=== PATIENT | female | born 1990 | race Caucasian/White ===

== ENCOUNTER → 2017-05-07 19:00 | Observation (INO) ==
--- NOTE | 2017-05-07 16:58 | OB/GYN History & Physical ---
Date of Encounter: 05/07/17 Time of Encounter: 16:53 Assessment and Plan (1) 37 weeks gestation of Current visit: Yes Status: Acute Admitted for observation (2) Rh negative status during in third trimester, antepartum Current visit: Yes Status: Acute Blood type and screen ordered. Rhogam to be given. (3) Marijuana use Current visit: Yes Status: Acute Urine drug screen (4) Limited care in third trimester Current visit: Yes Status: Acute Admitted for observation and labor evaluation 28 week labs drawn History of Present Illness Chief complaint: 37.6 weeks, contractions and back pain since 05/06/17 at 2315 HPI: Ms. Bustillos is a 26 year old female at 37w6d admitted with complaints of contractions and back pain since last night at 2315. States the pain comes and goes. Patient reports + movement that is slightly decreased today, denies fluid leakage and vaginal bleeding. Pt admits that she has smoked marijuana during the , the last time a "few months ago." Also reports an elective AB in May of 2016. Pt has not had any care since 23 weeks. States she tried to get care at [facility] but there was a delay in her records being transferred. Denies alcohol use patient reports daily tobacco use. Past Med Surg Social Fam HX - Past Medical History Source: patient Medical history: no medical history, hypertension (Was induced for HTN with last ) Psychiatric history: no psych history - Past Surgical History Surgical History: no surgical history, other (Elective AB at 12 weeks gestation in May 2016) - Social History Smoking Status: Current every day smoker Packs per day: 0.25 pack Smokeless Tobacco Status: No Alcohol use: none Drug use: marijuana (Last use a "few months ago") Current living situation: Home - Independent Recent Out of Country Travel Within the Last 8 Weeks: No Exposure or Possible Exposure to Illness During Travel: No - Family History Mother Adopted: [place]: Susana Age: 44 Living Status: Still Living Hx Family Cardiac Disorders: No Hx Family Respiratory Disorders: No Hx Family Cancer: No Hx Family GI Disorders: No Hx Family Genitourinary Disorders: No Hx Family Endocrine Disorder: No Hx Family Musculoskeletal Disorders: No Hx Family Neuromuscular Disorders: No Hx Family Neurologic Disorders: No Hx Family HEENT Disorders: No Hx Family Autoimmune Disorders: No Hx Family Reproductive Disorders: No Hx Family Psychosocial Disorders: No Hx Family Medical Disorders: No Obstetrical History - Pregnancies : 6 Para: 4 Term: 4 : 0 Ab's: 1 Livin - History/Complications History/Complications: Pt reports a shoulder dystocia with 1st delivery. 4th delivery patient was induced for HTN. Medications and Allergies Multi Tablet 05/07/17 [History] 3 Allergy/AdvReac Type Severity Reaction Status Date / Time Amoxicillin AdvReac Nausea Verified 05/07/17 16:22 Review of System OB All systems PM: reviewed and no additional remarkable complaints except as stated Exam - Constitutional Constitutional: well developed, well nourished, no acute distress, average body habitus - Neck Neck exam: full ROM - Lungs Respiratory exam: CTAB - Cardiovascular Cardiovascular exam: RRR, +S1, +S2 - Breasts Breast: bilateral: normal - Abdomen Abdomen: Present: bowel sounds normal, gravid, non tender - Extremities Extremities exam: full ROM, normal capillary refill, normal inspection - Cervix Dilation: 1 (per RN) - Uterus Uterus exam: Present: normal size - Comments Comments: FHR 125 bpm moderate variability +15x15 accels no decels noted. Occasional contraction noted. Results All other labs normal. - VTE Reasons for not Prescribing Prophylaxis: Treatment not Indicated - Low risk for VTE
[2017-05-07 17:26] LABS: Hemoglobin A1C 4.9 %
[2017-05-07 17:59] LABS: Basophils % 0.3 %; Eosinophils # 0.1 K/mcL (0.0-0.6); Eosinophils % 1.1 %; Hematocrit 30.2 % (35.3-44.9); Hemoglobin 10.5 g/dL (11.5-15.4); Immature Granulocytes % 0.4 % (0-4); Lymphocytes % 27.8 %; Mean Corpuscular HGB Conc 34.8 g/dL (31.6-35.5); Mean Corpuscular Hemoglobin 29.6 pg (28.0-33.3); Mean Corpuscular Volume 85.1 fL (83.0-100.0); Mean Platelet Volume 10.2 fL (9.4-12.4); Monocytes # 0.8 K/mcL (0.0-1.3); Monocytes % 7.7 %; Neutrophils # 6.8 K/mcL (1.6-8.9); Platelet Count 286 K/mcL (140-400); Red Blood Count 3.55 M/mcL (3.82-4.97); Red Cell Distribution Width 15.3 % (11.5-14.5); Segmented Neutrophils % 62.7 %
[2017-05-07 18:05] LABS: Amphetamine Screen,Urine Negative ng/mL (Cutoff=1000); Barbiturate Screen,Urine Negative ng/mL (Cutoff=200); Benzodiazepines Screen,Urine Negative ng/mL (Cutoff=200); Cannabinoid Screen,Urine Negative ng/mL (Cutoff = 50); Cocaine Screen,Urine Negative ng/mL (Cutoff= 300); Opiate Screen,Urine Negative ng/mL (Cutoff=300); Phencyclidine Screen,Urine Negative ng/mL (Cutoff=25)
--- NOTE | 2017-05-07 18:26 | Discharge Summary ---
Date of Encounter: 05/07/17 Time of Encounter: 18:24 - Discharge Diagnosis (1) 37 weeks gestation of Priority: Primary Status: Acute Comments: Admitted for observation for labor evaluation (2) Rh negative status during in third trimester, antepartum Priority: Secondary Status: Acute Comments: Rhogma given (3) Marijuana use Priority: Secondary Status: Acute Comments: Negative drug screen today (4) Limited care in third trimester Priority: Secondary Status: Acute Comments: Return to L&D for s/s of labor (5) NST (non-stress test) reactive on surveillance Priority: Secondary Status: Acute Comments: 130 bpm, moderate variability, + 15x15 accels, no decels. Category I tracing. - Discharge Medications Home Medications: Multi Tablet 05/07/17 [History] Allergies/Adverse Reactions: 3 Allergy/AdvReac Type Severity Reaction Status Date / Time Amoxicillin AdvReac Nausea Verified 05/07/17 16:22 Data Procedures and tests throughout hospitalization: Laboratory Tests 05/07/17 05/07/17 05/07/17 16:35 16:53 16:53 WBC RBC Hgb Hct MCV MCH MCHC RDW Plt Count MPV Immature Gran % Seg Neutrophils % Lymphocytes % Monocytes % Eosinophils % Basophils % Neutrophils # Lymphocytes # Monocytes # Eosinophils # Basophils # Est Mean Plasma Glucose 94 Hemoglobin A1c 4.9 Urine Opiates Screen Negative Ur Barbiturates Screen Negative Ur Phencyclidine Scrn Negative Ur Amphetamines Screen Negative U Benzodiazepines Scrn Negative Urine Cocaine Screen Negative U Marijuana (THC) Screen Negative Blood Type B NEGATIVE Antibody Screen NEGATIVE 05/07/17 17:45 WBC 10.8 RBC 3.55 L Hgb 10.5 L Hct 30.2 L MCV 85.1 MCH 29.6 MCHC 34.8 RDW 15.3 H Plt Count 286 MPV 10.2 Immature Gran % 0.4 Seg Neutrophils % 62.7 Lymphocytes % 27.8 Monocytes % 7.7 Eosinophils % 1.1 Basophils % 0.3 Neutrophils # 6.8 Lymphocytes # 3.0 Monocytes # 0.8 Eosinophils # 0.1 Basophils # 0.0 Est Mean Plasma Glucose Hemoglobin A1c Urine Opiates Screen Ur Barbiturates Screen Ur Phencyclidine Scrn Ur Amphetamines Screen U Benzodiazepines Scrn Urine Cocaine Screen U Marijuana (THC) Screen Blood Type Antibody Screen Labs on day of discharge: Labs from last 24 hours 1005/07/17 05/07/17 17:45 16:53 16:53 WBC 10.8 RBC 3.55 L Hgb 10.5 L Hct 30.2 L MCV 85.1 MCH 29.6 MCHC 34.8 RDW 15.3 H Plt Count 286 MPV 10.2 Immature Gran % 0.4 Seg Neutrophils % 62.7 Lymphocytes % 27.8 Monocytes % 7.7 Eosinophils % 1.1 Basophils % 0.3 Neutrophils # 6.8 Lymphocytes # 3.0 Monocytes # 0.8 Eosinophils # 0.1 Basophils # 0.0 Est Mean Plasma Glucose 94 Hemoglobin A1c 4.9 Urine Opiates Screen Ur Barbiturates Screen Ur Phencyclidine Scrn Ur Amphetamines Screen U Benzodiazepines Scrn Urine Cocaine Screen U Marijuana (THC) Screen Blood Type B NEGATIVE Antibody Screen NEGATIVE 05/07/17 16:35 WBC RBC Hgb Hct MCV MCH MCHC RDW Plt Count MPV Immature Gran % Seg Neutrophils % Lymphocytes % Monocytes % Eosinophils % Basophils % Neutrophils # Lymphocytes # Monocytes # Eosinophils # Basophils # Est Mean Plasma Glucose Hemoglobin A1c Urine Opiates Screen Negative Ur Barbiturates Screen Negative Ur Phencyclidine Scrn Negative Ur Amphetamines Screen Negative U Benzodiazepines Scrn Negative Urine Cocaine Screen Negative U Marijuana (THC) Screen Negative Blood Type Antibody Screen Date of admission: 05/07/17 15:58 Primary care physician: PCP NONE Discharging clinician: Payal Israel Anticipated date of discharge: 05/07/17 - Patient Status Disposition: Home, Self-Care Functional capacity at discharge: independent ambulation - Discharge Instructions Follow Up With: NONE,PCP [Primary Care Provider] - - Diet and Activity Activity: increase activity as tolerated Diet: advance to your usual diet 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 Category I tracing. Irregular contractions. - VTE Reasons for not Prescribing Prophylaxis: Treatment not Indicated - Low risk for VTE
[~2017-05-07 19:00] MED LIST: Rho Immune Globulin 1,500 UNIT SYRINGE IM ONE
== END | disposition home or self-care (01) ==
LOC: 1NENULAB
PROVIDERS: ADMIT Obstetrics & Gynecology; ATTEND Obstetrics & Gynecology

== ENCOUNTER 2017-05-21 02:27 | Inpatient (IN) ==
[2017-05-21] MEDS ORDERED: Naloxone 0.4 MG/ML INJ IVP PRN (03:47)
[2017-05-21] MEDS ORDERED: Ondansetron 4 MG/2 ML VIAL IVP PRN (03:47)
[2017-05-21] MEDS ORDERED: Famotidine 20 MG/2 ML VIAL IVP PRN (03:47)
[2017-05-21] MEDS ORDERED: Penicillin G Potassium 5,000,000 UNIT in D5% in Water (Mini-Bag+) 100 ML IVPB ONE (03:50)
[2017-05-21] MEDS ORDERED: Ringers Solution, Lactated 1,000 ML IVC SCH (04:00)
[2017-05-21] MEDS ORDERED: Penicillin G Potassium 2,500,000 UNIT in D5% in Water 100 ML IVPB SCH (04:00)
--- NOTE | 2017-05-21 04:07 | OB/GYN History & Physical ---
Date of Encounter: 05/21/17 Time of Encounter: 03:55 Assessment and Plan (1) 39 weeks gestation of Current visit: Yes Status: Acute (2) Uterine contractions Current visit: Yes Status: Acute Cervical changed noted from 3-4cm Admit to labor and delivery Nubain and epidural as desired PCN for GBS unknown (Amoxicillin listed as allergy, but patient states it only makes her nauseated) Anticipate (3) Limited care in third trimester Current visit: No Status: Acute (4) Rh negative status during in third trimester, antepartum Current visit: No Status: Acute (5) Marijuana use Current visit: No Status: Acute History of Present Illness Chief complaint: contractions HPI: Ms. Bustillos is a 26 year old female at 37w6d admitted with complaints of contractions and back pain since yesterday at 1100am. Pt states contractions became regular and strong about 0100 today. Reports good movement denies fluid leakage and vaginal bleeding. Pt admits that she has smoked marijuana during the , the last time a "few months ago." Pt has not had any care since 23 weeks. States she tried to get care at [facility] but was unable to start care. Denies illicit drugs other than THC, and alcohol use in . labs: B-, rubella immune, gbs unkown, abnormal thalassemia, negative sickle cell , all other serologies negative Past Med Surg Social Fam HX - Past Medical History Medical history: no medical history Psychiatric history: no psych history - Past Surgical History Surgical History: no surgical history, other - Social History Smoking Status: Current every day smoker Packs per day: 0.5 Smokeless Tobacco Status: No Alcohol use: none Drug use: marijuana - Family History Mother Adopted: No Living Status: Still Living Hx Family Cardiac Disorders: No Hx Family Respiratory Disorders: No Hx Family Cancer: No Hx Family GI Disorders: No Hx Family Endocrine Disorder: No Hx Family Neuromuscular Disorders: No Hx Family Neurologic Disorders: No Hx Family HEENT Disorders: No Hx Family Autoimmune Disorders: No Obstetrical History - Pregnancies : 6 Para: 4 Term: 4 : 0 Ab's: 1 Livin Medications and Allergies No Known Home Drugs 05/21/17 [History] 3 Allergy/AdvReac Type Severity Reaction Status Date / Time Amoxicillin AdvReac Nausea Verified 05/21/17 02:51 Exam - Constitutional Constitutional: well developed, well nourished, no acute distress - Neck Neck exam: full ROM - Lungs Respiratory exam: CTAB - Cardiovascular Cardiovascular exam: RRR - Abdomen Abdomen: Present: bowel sounds normal, gravid, non tender - Extremities Deep Tendon Reflex Grade: 2+ Normal - Uterus Uterus exam: Present: normal size, normal contour - Anus/Rectum Anus/Rectum: Present: normal perianal skin Results All other labs normal. - VTE Reasons for not Prescribing Prophylaxis: Treatment not Indicated - Low risk for VTE
[2017-05-21] MEDS ORDERED: *HR* Nalbuphine 20 MG/ML AMPUL IVP PRN (04:11)
[2017-05-21 04:25] LABS: Basophils % 0.3 %; Eosinophils # 0.1 K/mcL (0.0-0.6); Eosinophils % 0.9 %; Hematocrit 31.7 % (35.3-44.9); Hemoglobin 10.8 g/dL (11.5-15.4); Immature Granulocytes % 0.6 % (0-4); Lymphocytes # 3.2 K/mcL (0.6-4.6); Lymphocytes % 30.6 %; Mean Corpuscular HGB Conc 34.1 g/dL (31.6-35.5); Mean Corpuscular Hemoglobin 29.1 pg (28.0-33.3); Mean Corpuscular Volume 85.4 fL (83.0-100.0); Mean Platelet Volume 10.3 fL (9.4-12.4); Monocytes # 0.7 K/mcL (0.0-1.3); Neutrophils # 6.4 K/mcL (1.6-8.9); Platelet Count 286 K/mcL (140-400); Red Blood Count 3.71 M/mcL (3.82-4.97); Red Cell Distribution Width 15.2 % (11.5-14.5); Segmented Neutrophils % 60.6 %
[2017-05-21] MEDS ORDERED: Epidural Premix (fent/bupiv) 110 ML EP ONE ×2 (04:35→10:19)
[2017-05-21 04:39] LABS: Amphetamine Screen,Urine Negative ng/mL (Cutoff=1000); Barbiturate Screen,Urine Negative ng/mL (Cutoff=200); Benzodiazepines Screen,Urine Negative ng/mL (Cutoff=200); Cannabinoid Screen,Urine Negative ng/mL (Cutoff = 50); Cocaine Screen,Urine Negative ng/mL (Cutoff= 300); Opiate Screen,Urine Negative ng/mL (Cutoff=300); Phencyclidine Screen,Urine Negative ng/mL (Cutoff=25)
--- NOTE | 2017-05-21 05:10 | Anesthesia Evaluation PreOp ---
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 Any Significant HX Other Medical History: Denies Any Significant HX Anesthesia History: No Prior Anesthetic Complications, Past Anesthesia Alcohol Use: none Drug use: marijuana Medications and Allergies No Known Home Drugs 05/21/17 [History] 3 Allergy/AdvReac Type Severity Reaction Status Date / Time Amoxicillin AdvReac Nausea Verified 05/21/17 02:51 Anesthesia Results - Labs 05/21/17 04:09 Anesthesia Exam - HEENT Pupil (Motor): Pupils equal Mallampati: III Teeth: Normal Oral Opening: Greater than 3 - KNIFE SETTER ASSEMBLER LOC: Oriented KNIFE SETTER ASSEMBLER Motor: Normal RUE, Normal LUE, Normal RLE, Normal LLE, Normal Face KNIFE SETTER ASSEMBLER Sensory: Normal: RUE, LUE, RLE, LLE, Face - Cardiac Rhythm: Regular Murmur: None - Pulmonary Breath Sounds: bilateral Clear Respiratory Effort: Symmetrical Anesthesia Assess/Plan ASA Score: 2 Modified [place] Scale for Level of Consciousness: Cooperative, oriented, and tranquil Anesthetic Plan: General, Regional Monitoring Plan: Standard Monitors
--- NOTE | 2017-05-21 05:12 | Anesthesia Procedures ---
Date of Encounter: 05/21/17 Time of Encounter: 04:54 Procedures: Anesthesia - Epidural/Spinal Patient ID/Chart reviewed: Yes Patient examined: Yes OB Eval: Gestational age: term OB Eval: : 4 OB Eval: Hx Para: 3 OB Eval: Dilated at (cm): 5 OB Eval: Contractions: Non-stressed pattern Supplemental Oxygen: None/Room Air Site Prep: Aseptic Technique, Sterile prep and drape, 0.5% Chlorhexidine/Alcohol Patient position: upright Local Anesthetic: Lidocaine 1% Amount of Local Anesthetic used: 2 Touhy Needle Gauge: 18 Touhy Needle Depth (cm): 7 Catheter Depth at Skin (cm): 11 Test Dose (1.5% Lido + Epi): Volume given (mls): 3 Test Dose Result: Negative Loading Dose: Other: 12ml from solution Loading Dose Administered: Thru Catheter Infusion Med: 0.125% Bupivacaine w/ 2 mcg/ml Fentanyl Infusion Rate (mls/hr): [address]: Tegaderm, Tape Interspace Used: L4-L5 Loss of Resistance (CHARY): Yes (saline) Blood: No CSF: No Paresthesia: No Procedure: vss though out, FHR stable per RNs
[2017-05-21] MEDS ORDERED: Methylergonovine 0.2 MG/ML AMPUL IM ONE (07:33)
[2017-05-21] MEDS ORDERED: Oxytocin 20 units/ LR 1000 mL 20 UNIT/1,000 ML BAG IVC ONE (08:47)
--- NOTE | 2017-05-21 09:33 | OB Labor Progress Note ---
Date of Encounter: 05/21/17 Time of Encounter: 09:31 Labor Progress Note - Subjective Subjective: Patient resting comfortably with epidural in place. Discussed POC with patient. Patient denies any questions or concerns. - Cervix Cervix: 9.5/100/0 - Heart Tones Heart Tones: 135 bpm moderate variability +15x15 accels no decels noted. CAt. 1 tracing - [place]: 2-4 min apart - Interventions Interventions: SVE, AROM moderate amount of clear fluid - Plan Plan: Continue labor management.
--- NOTE | 2017-05-21 12:45 | OB/GYN Procedure Note ---
Delivery - Delivery Date: 05/21/17 Provider: Payal Israel Intrapartum events: abruption Delivery induction: none Delivery augmentation: rupture of membranes Delivery monitor: external FHT, external uterine Anesthesia: epidural Estimated Blood Loss: 400 - (s) Infant A Delivery Date: 05/21/17 Infant Delivery Time: 12:19 Presentation: vertex Position: SHIRA Route of delivery: Gender: Male Viability: Viable Pounds: 6 Ounces: 13 Weight Gram: 3085 kg at 1 minute: 9 at 5 mins: 9 Shoulder Dystocia: not encountered Specimens collected: cord blood Placenta: spontaneous, uterine exploration Cord: 3 umbilical vessels - Repair Episiotomy: none Laceration Description: None - Complications Delivery complications: placenta abruption - Disposition Mom disposition: stable in LDR disposition: stable in LDR - Comments Comments: Called to LDR patient pushing with contractions and a large amount of blood noted. Under maternal effort patient spontaneously delivered a viable male infant over an intact perineum. Multiple large blood clots noted upon delivery. No nuchal cord, shoulder dystocia or meconium was encountered. was placed on maternal abdomen. Cord was clamped and cut after pulsation ceased. Placenta delivered spontaneously and intact. Methergine IM was given for increased vaginal bleeding. Uterus was firm. Pericare provided, all counts correct. Both mother and stable in recovery.
[2017-05-21] MEDS ORDERED: Oxytocin 20 units/ LR 1000 mL 20 UNIT/1,000 ML BAG IVC SCH (14:12)
[2017-05-21] MEDS ORDERED: Rho Immune Globulin 1,500 UNIT SYRINGE IM PRN (14:12)
[2017-05-21] MEDS: Ibuprofen 600 MG TABLET PO PRN (15:17)
[2017-05-22] MEDS: Ibuprofen 600 MG TABLET PO PRN (00:25)
[2017-05-22] MEDS: Acetaminophen 325 MG TABLET PO PRN ×2 (04:17→10:43)
[2017-05-22 06:53] LABS: Basophils % 0.2 %; Eosinophils # 0.2 K/mcL (0.0-0.6); Eosinophils % 0.8 %; Hematocrit 25.6 % (35.3-44.9); Immature Granulocytes % 0.5 % (0-4); Lymphocytes # 4.2 K/mcL (0.6-4.6); Lymphocytes % 21.6 %; Mean Corpuscular Hemoglobin 29.1 pg (28.0-33.3); Mean Corpuscular Volume 85.6 fL (83.0-100.0); Mean Platelet Volume 10.2 fL (9.4-12.4); Monocytes # 1.1 K/mcL (0.0-1.3); Monocytes % 5.9 %; Neutrophils # 13.7 K/mcL (1.6-8.9); Platelet Count 229 K/mcL (140-400); Red Blood Count 2.99 M/mcL (3.82-4.97); Red Cell Distribution Width 15.1 % (11.5-14.5)
[2017-05-22 06:57] LABS: Hemoglobin 8.7 g/dL (11.5-15.4)
--- NOTE | 2017-05-22 08:13 | Discharge Summary ---
Date of Encounter: 05/22/17 Time of Encounter: 08:08 - Discharge Diagnosis (1) Status post vaginal delivery Priority: Primary Status: Acute (2) 39 weeks gestation of Priority: Secondary Status: Resolved (3) Marijuana use Priority: Secondary Status: Chronic (4) Rh negative, delivered, current hospitalization Priority: Secondary Status: Chronic - Discharge Medications Prescriptions: Ibuprofen [Motrin] 600 mg PO Q6HR PRN #60 tablet PRN Reason: Cramping Docusate [Colace] 100 mg PO BID #30 capsule Ferrous Sulfate 325 mg PO DAILY #30 tablet Home Medications: Docusate [Colace] 100 mg PO BID #30 capsule 05/22/17 [Rx] Ferrous Sulfate 325 mg PO DAILY #30 tablet 05/22/17 [Rx] Ibuprofen [Motrin] 600 mg PO Q6HR PRN #60 tablet 05/22/17 [Rx] Vit/FA 1 each PO DAILY tablet 05/22/17 [Rx] Allergies/Adverse Reactions: 3 Allergy/AdvReac Type Severity Reaction Status Date / Time Amoxicillin AdvReac Nausea Verified 05/21/17 02:51 Data Procedures and tests throughout hospitalization: Laboratory Tests 05/21/17 05/21/17 05/21/17 03:50 04:09 12:47 WBC 10.5 RBC 3.71 L Hgb 10.8 L Hct 31.7 L MCV 85.4 MCH 29.1 MCHC 34.1 RDW 15.2 H Plt Count 286 MPV 10.3 Immature Gran % 0.6 Seg Neutrophils % 60.6 Lymphocytes % 30.6 Monocytes % 7.0 Eosinophils % 0.9 Basophils % 0.3 Neutrophils # 6.4 Lymphocytes # 3.2 Monocytes # 0.7 Eosinophils # 0.1 Basophils # 0.0 Urine Opiates Screen Negative Ur Barbiturates Screen Negative Ur Phencyclidine Scrn Negative Ur Amphetamines Screen Negative U Benzodiazepines Scrn Negative Urine Cocaine Screen Negative U Marijuana (THC) Screen Negative Screen NEGATIVE Baby's Blood Type B RH POSITIVE Mother's Blood Type B RH NEGATIVE Rhogam Indicated YES Rhogam Req for Mother 1 05/22/17 06:36 WBC 19.3 H D RBC 2.99 L Hgb 8.7 L D Hct 25.6 L MCV 85.6 MCH 29.1 MCHC 34.0 RDW 15.1 H Plt Count 229 MPV 10.2 Immature Gran % 0.5 Seg Neutrophils % 71.0 Lymphocytes % 21.6 Monocytes % 5.9 Eosinophils % 0.8 Basophils % 0.2 Neutrophils # 13.7 H Lymphocytes # 4.2 Monocytes # 1.1 Eosinophils # 0.2 Basophils # 0.0 Urine Opiates Screen Ur Barbiturates Screen Ur Phencyclidine Scrn Ur Amphetamines Screen U Benzodiazepines Scrn Urine Cocaine Screen U Marijuana (THC) Screen Screen Baby's Blood Type Mother's Blood Type Rhogam Indicated Rhogam Req for Mother Labs on day of discharge: Labs from last 24 hours 05/22/17 05/21/17 06:36 12:47 WBC 19.3 H D RBC 2.99 L Hgb 8.7 L D Hct 25.6 L MCV 85.6 MCH 29.1 MCHC 34.0 RDW 15.1 H Plt Count 229 MPV 10.2 Immature Gran % 0.5 Seg Neutrophils % 71.0 Lymphocytes % 21.6 Monocytes % 5.9 Eosinophils % 0.8 Basophils % 0.2 Neutrophils # 13.7 H Lymphocytes # 4.2 Monocytes # 1.1 Eosinophils # 0.2 Basophils # 0.0 Screen NEGATIVE Baby's Blood Type B RH POSITIVE Mother's Blood Type B RH NEGATIVE Rhogam Indicated YES Rhogam Req for Mother 1 Date of admission: 05/21/17 02:27 Primary care physician: PCP NONE Consults: 05/21/17 14:12 Consult to Registered Nurse Cardiac Telemetry [CONS] Routine Reason for SW Consult: limited care Discharging clinician: Malgorzata Werner Anticipated date of discharge: 05/22/17 - Patient Status Disposition: Home, Self-Care Condition: Good Functional capacity at discharge: independent ambulation Overall status at discharge: patient is progressing back to baseline - Discharge Instructions Follow Up With: NONE,PCP [Primary Care Provider] - - Diet and Activity Activity: increase activity as tolerated Diet: advance to your usual diet Hospital Course Reason for admission: active labor Delivery: Episiotomy: none Laceration: none Other procedures: none complications: none Discharge diagnosis: IUP at term delivered baby: male Hospital course: Ms. 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 Pt admits that she has smoked marijuana during the , the last time a "few months ago." Pt has not had any care since 23 weeks. States she tried to get care at [facility] but was unable to start care. Denies illicit drugs other than THC, and alcohol use in . She is B- and GBS status was unknown. She was given PCN for unknown GBS status. She has an allergy to amoxicillin listed that patient states is nausea. Labor progressed with AROM with clear fluid. The patient received an epidural and once she was complete began pushing. Under maternal effort patient spontaneously delivered a viable male infant over an intact perineum. Multiple large blood clots noted upon delivery. No nuchal cord, shoulder dystocia or meconium was encountered. was placed on maternal abdomen. Cord was clamped and cut after pulsation ceased. Placenta delivered spontaneously and intact. Methergine IM was given for increased vaginal bleeding. Uterus was firm. Patient doing well post-op. She notes some suprapubic pain, but is otherwise doing well. She received rhogam prior to discharge. Will be discharged home with rx for ibuprofen, colace and iron. She states she still has vitamins at home that she will take. Time Attestation: Total time spent providing and/or coordinating discharge services: Time Spent: Less than 30 minutes Exam - Constitutional Vitals: Temp Pulse Resp BP Pulse Ox 97.9 F 78 16 104/68 100 05/22/17 04:13 05/22/17 04:13 05/22/17 04:13 05/22/17 04:13 05/22/17 04:13 General appearance IM: cooperative, A&O X 3, pleasant, no acute distress, answers questions appropriately - Respiratory Respiratory exam: Present: CTAB - Cardiovascular Cardiovascular exam IM: Present: RRR, +S1, +S2 - GI/Abdominal GI/Abdominal exam IM: normal bowel sounds, soft, tenderness (suprapubic) - Rectal Rectal exam: deferred - Uterine Tone: Firm Uterus Position: 2 Fingers Below Umbilicus - Extremities Exam Extremities exam IM: Present: normal capillary refill, normal inspection, radial pulses palpable and symmetrical. Absent: calf tenderness, pedal edema - Neurological Exam Neurological exam: alert, oriented X3, no focal deficits, strengths equal and symetr throughout - Attending Attestation I examined this patient and my medical decision-making was reviewed with the Resident Physician. I agree with the documented findings, disposition and treatment plan as described except to the extent set forth below. Rebecca Medina CNM
[2017-05-22] MEDS ORDERED: Prenatal Vit/FA 1 EACH TABLET PO SCH (09:00)
[2017-05-22 11:10] VITALS: BP 94/53
== END 2017-05-22 14:30 | disposition home or self-care (01) | DRG 560 ==
LOC: 1NENULAB → OBSVTOIN 02:27 → 1NENUOBS 14:10
PROVIDERS: ADMIT Advanced Practice Midwife; ATTEND Advanced Practice Midwife